=== PATIENT | male | born 2000 | race Hispanic/Latino ===

== ENCOUNTER 2021-04-22 08:33 | Day surgery (SDC) | payer OTHER ==
[2021-04-22] MEDS ORDERED: Xylocaine 1% w/ Epi 1:100K 10 ML VIAL ONE (08:45)
[2021-04-22] MEDS ORDERED: Lidocaine 1% (PF) 30 ML VIAL ONE (13:27)
[2021-04-22] MEDS ORDERED: Bupivacaine 0.25% HCL 30 ML VIAL ONE (13:27)
[2021-04-22] MEDS ORDERED: Fentanyl 100 MCG/2 ML VIAL ONE (13:28)
[2021-04-22] MEDS ORDERED: ceFAZolin 2 GM/Dextrose 50 ML IVPB ONE (13:33)
[2021-04-22] MEDS ORDERED: Ketorolac Tromethamine 30 MG/ML VIAL ONE (13:41)
[2021-04-22] MEDS ORDERED: PROPOFOL 200 MG/20 ML VIAL ONE (13:41)
[2021-04-22] MEDS ORDERED: Ondansetron PF 4 MG/2 ML Vial ONE (13:41)
[2021-04-22] MEDS ORDERED: Lidocaine 1% PF 5 ML VIAL ONE (13:41)
[2021-04-22] MEDS ORDERED: Dexamethasone 20 MG/5 ML VIAL ONE (13:41)
[2021-04-22 16:13] LABS: SARS-CoV-2 PCR by NAA Not Detected (NotDetected)
== END 2021-04-22 16:45 | disposition home or self-care (01) ==
LOC: ERS 08:33 → SDC/OP 12:11
PROVIDERS: ATTEND Surgery Surgery of the Hand
PROC: 03QC0ZZ Repair Left Radial Artery, Open Approach (ICD-10-PCS; principal; 2021-04-22)
PROC: 0LQ60ZZ Repair Left Lower Arm and Wrist Tendon, Open Approach (ICD-10-PCS; principal; 2021-04-22)
DX: S65.112A Laceration of radial artery at wrist and hand level of left arm, initial encounter (principal); S66.129A Laceration of flexor muscle, fascia and tendon of unspecified finger at wrist and hand level, initial encounter; S61.512A Laceration without foreign body of left wrist, initial encounter; Z20.822 Contact with and (suspected) exposure to COVID-19; W26.8XXA Contact with other sharp object(s), not elsewhere classified, initial encounter; Y99.0 Civilian activity done for income or pay
CPT/HCPCS: 93923; G0390; J0690; J1642; J2001; J3010; S0020; U0003; U0005